=== PATIENT | female | born 1960 | race Caucasian/White ===

== ENCOUNTER → 2023-02-04 | Outpatient (CLI) | payer OTHER ==
[~2023-02-04] MED LIST: CRUTCH4 XX; Norco 5-325 Ta1 EACH PO; TRAZ50 PO
[2023-02-06 13:11] LABS: HPV 16 Negative (Negative); HPV 18 Negative (Negative); HPV OTHER HR TYPES Negative (Negative)
== END ==
LOC: LAB SHORT 13:51 → LAB 13:51
PROVIDERS: Advanced Practice Midwife
DX: Z01.419 Encounter for gynecological examination (general) (routine) without abnormal findings (principal)
CPT/HCPCS: 87624; G0145

== ENCOUNTER 2024-08-11 20:46 | Emergency (ER) | payer OTHER ==
[~2024-08-11] VITALS: Ht 165.1 cm; Wt 74.8 kg
[2024-08-11] MEDS ORDERED: PROG100 PO (21:59)
[2024-08-11] MEDS ORDERED: ESTRADIOL1 MG PO (22:00)
[2024-08-11 22:15] VITALS: BP 112/74
[2024-08-11] MEDS ORDERED: Ketorolac Tromethamine 15mg Vial IV ONE (22:25)
== END 2024-08-11 22:47 | disposition home or self-care (01) ==
LOC: ER 20:46
DX: S89.92XA Unspecified injury of left lower leg, initial encounter (principal); W01.0XXA Fall on same level from slipping, tripping and stumbling without subsequent striking against object, initial encounter; Z88.0 Allergy status to penicillin; Z88.8 Allergy status to other drugs, medicaments and biological substances; Z79.899 Other long term (current) drug therapy
CPT/HCPCS: 73562-LT; 96374; 99284-25; J1885